=== PATIENT | female | born 2000 | race Caucasian/White ===

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

== ENCOUNTER 2021-09-05 13:02 | Emergency (ER) | payer OTHER | END 2021-09-05 13:40 | disposition home or self-care (01) | LOC: MADERS 13:02 | DX: O47.03 False labor before 37 completed weeks of gestation, third trimester (principal) ==

== ENCOUNTER 2021-09-30 21:04 | Emergency (ER) | payer OTHER ==
[2021-09-30] MEDS ORDERED: Albuterol Sulfate 2.5 mg/0.5 ml Neb ONE (22:40)
[2021-09-30] MEDS ORDERED: guaiFENesin/Codeine Phosphate 100 mg/10 mg 5 ml UD Cup ONE (22:40)
== END 2021-09-30 23:15 | disposition home or self-care (01) ==
LOC: MADERS 21:04
DX: U07.1 COVID-19 (principal)
CPT/HCPCS: 71045; J7611

== ENCOUNTER 2021-10-14 13:51 | Emergency (ER) | payer OTHER ==
[2021-10-14 14:31] LABS: Bilirubin Negative (Negative); Blood, Urine Negative (Negative); Glucose, Urine (Dipstick) Negative (Negative); Ketone, Urine Trace mg/dL (Negative); Leukocyte Trace (Negative); Nitrite Negative (Negative); Protein, Urine (Dipstick) Negative (Neg-Trace); pH, Urine 7.5 (5.0-9.0)
[2021-10-14 14:33] LABS: Clarity Hazy (Clear)
[2021-10-14 14:34] LABS: Bacteria/HPF 1+ HPF (None Seen); RBC/HPF 0-3 HPF (0-3); WBC/HPF 0-3 HPF (0-3)
== END 2021-10-14 14:50 | disposition home or self-care (01) ==
LOC: MADERS 13:51
DX: O60.03 Preterm labor without delivery, third trimester (principal); Z3A.36 36 weeks gestation of pregnancy
CPT/HCPCS: 81001; 99284